=== PATIENT | male | born 1965 | race Caucasian/White ===

== ENCOUNTER 2021-12-05 09:18 | Inpatient (IN) ==
[2021-12-05] MEDS ORDERED: DEXAMETHASONE 10 MG/ML VIAL IV ONE (10:03)
--- NOTE | 2021-12-05 10:06 | Emergency Department Note ---
HPI General Chief complaint: Shortness of Breath/Dyspnea Stated complaint: COVID, PNA Time Seen by Provider: 12/05/21 09:48 Source: patient and EMS Mode of arrival: EMS Limitations: no limitations History of Present Illness HPI Narrative: Narrative: 56 yo M w/ h/o HTN, known COVID19, p/w SOB. He reports constant SOB, worsened w/ exertion, relieved by rest, w/ no accompanying PND/orthopnea. He notes body aches, subjective F/C, and fatigue. He has not had CP, N/V/D. He is unvaccinated against COVID19. He saw his PCP for this issue recently and was Dx'd w/ COVID19. On re-eval today his CXR showed pulmonary edema, and he was hypoxic in the office. He was thus sent here for ongoing care. Related Data Home Medications Medication Instructions Recorded Confirmed sildenafil (pulm.hypertension) 20 3 - 5 tab PO 12/05/21 12/05/21 mg tablet Previous Rx's Medication Instructions Recorded blood pressure test kit-large #1 each 05/09/20 citalopram 10 mg tablet (Celexa) 10 mg PO QDAY #90 tab 08/29/21 metoprolol tartrate 50 See Rx Instructions .ROUTE 08/29/21 mg-hydrochlorothiazide 25 mg tablet .COMPLEX #180 tab benzonatate 200 mg capsule 200 mg PO .COMPLEX #21 cap 11/27/21 Allergies Allergy/AdvReac Type Severity Reaction Status Date / Time sulfamethoxazole Allergy Mild Rash Verified 12/05/21 15:47 [From Bactrim] trimethoprim [From Bactrim] Allergy Mild Rash Verified 12/05/21 15:47 Review of Systems ROS ROS Narrative: Narrative: All systems ED: reviewed and negative except as stated. [facility] Narrative Patient History Narrative: Narrative: Medical/Surgical/Family History All Active Problems (Updated 12/05/21 @ 13:28 by Slim Mitchell MD) Pneumonia due to COVID-19 virus (Acute) COVID-19 virus infection (Acute) Dyspnea on exertion (Acute) Cough (Acute) Fever (Acute) Flank pain (Acute) Viral syndrome (Acute) Pustular acne (Acute) Erectile dysfunction (Acute) Obesity (Acute) Diastasis recti (Acute) Exposure to STD (Acute) Dysuria (Acute) Depression (Acute) Numbness of right hand (Acute) Thrush, oral (Acute) Rosacea (Chronic) Hypertension (Chronic) Hypogonadism male (Chronic) Medical History Abnormal liver function test Allergic drug reaction Sulfa Bronchitis Dermatitis Elevated hemoglobin Erectile dysfunction FHx: cardiovascular disease History of BPH HTN (hypertension) Hyperlipidemia Onychomycosis Physical exam Polycythemia vera Right knee pain Screening for malignant neoplasm of prostate Tachycardia Testosterone deficiency Tobacco dependence Upper respiratory infection Viral syndrome Surgical History History of carpal tunnel release Right side - Dr. Veliz 2019 Status post right knee replacement 2014 - Dr Cheng Family History Mother Osteoporosis Arthritis Thyroid disease Father , in MVA before patient was born No problems noted. Grandfather Cardiovascular disease Hx of heart bypass surgery Both grandfathers and uncles Social History Smoking Status: Never smoker Exam Narrative Narrative: Narrative: General Limitations: no limitations General appearance: Present alert and in no apparent distress Head Head: Present atraumatic and normocephalic Chest Chest: Present normal inspection and symmetric chest wall rise Respiratory Respiratory: Present normal lung sounds bilaterally; Absent accessory muscle use or decreased breath sounds Cardiovascular Cardiovascular: Present regular rate, normal rhythm, +S1, +S2 and other (2+ B/L radial pulses); Absent systolic murmur or diastolic murmur Adbominal Abdominal: Present soft and normal bowel sounds; Absent distention or tenderness Extremities Extremities: Absent pedal edema Neurological Neurological: Present alert and oriented X3 Psychiatric Psychiatric: Present normal affect Skin Skin: Present warm (WNL) and dry Course Vital Signs Vital signs: Vital Signs Temperature 98.4 F 12/05/21 09:19 Pulse Rate 102 H 12/05/21 09:19 Respiratory Rate 20 12/05/21 09:19 Blood Pressure 144/95 12/05/21 09:19 Pulse Oximetry (%) 93 12/05/21 09:19 Temperature 98.0 F 12/05/21 15:43 Pulse Rate 104 H 12/05/21 15:43 Respiratory Rate 21 12/05/21 15:43 Blood Pressure 143/92 12/05/21 15:43 Pulse Oximetry (%) 92 12/05/21 15:43 MDM MDM Narrative Medical decision making narrative: Narrative: 56 yo M w/ h/o HTN, known COVID19, p/w SOB. DDx - COVID19, PE, ACS, DARLENE Pt presented in NAD but w/ hypoxia present which responded well to NC supplementation. He had no sudden worsening in Sx that is usually seen w/ PE in COVID19 and CTA was not indicated. EKG showed no ischemia and his overall presentation was not c/w ACS. COVID complications such as myocarditis and pericarditis were unlikely. Outpatient lab results show a normal BUN but for some reason there is no Cr. Overall however DARLENE seems less likely. His presentation was c/w PNA d/t COVID19. I started him on dexamethasone here in the ED and he was then admitted. Lab Data Lab results reviewed: Yes I reviewed the patient's lab results. Labs: Lab Results 12/05/21 12/05/21 Range/Units 13:14 13:14 Ferritin 1643.0 H (30.0-400.0) ng/mL Procalcitonin 0.20 H (<0.10) ng/mL Discharge Plan Patient/Caregiver Discharge Instructions Pt seen by CIVIL SERVICE CLERK/PA only: No Clinical Impression: Pneumonia due to COVID-19 virus Patient Disposition: Xfer As Inpt ([facility]) Condition: Fair Discharge Date/Time: 12/05/21 15:00
--- NOTE | 2021-12-05 12:39 | EKG ---
[facility] Test Date: 2021-12-05 Pat Name: Yariel Ibarra Department: ED Room: Gender: Male Manager Golf: JOSHUA : 1965 Requested By: Slim Mitchell Order Number: [id number] Reading MD: Mehul Phelan D.O. Measurements Intervals [place] Rate: 103 P: 18 W[place]: 177 QRS: 110 QRSD: 100 T: 26 QT: 355 QTc: 465 Interpretive Statements Sinus tachycardia Left posterior fascicular block Abnormal R-wave progression, late transition Electronically Signed On 12-05-2021 12:39:08 PST by Mehul Phelan D.O. /store/M0/[id number].pdf
--- NOTE | 2021-12-05 13:41 | Internal Med History&Physical ---
HPI History of Present Illness Patient information: Note initiated : 12/05/21 at 1:38 pm Service Date, if different from initiated Date: [] Patient: Yariel Ibarra a 56 y/o M admitted on for COVID, PNA. Chief Complaint: [] History of present illness: Mr. Ibarra is a 56 year old M Who presents the ED with shortness of breath and nonproductive cough. Is been feeling crummy for couple weeks and got tested for Covid last week and positive. Patient is not vaccinated. Patient had fevers last week and chills but that has improved. His cough is worsened. Body aches. He went into [facility] and was found to be hypoxic in the 80s by his PCP and then sent to the ED. Review of Systems: Pertinent positives as above. Denies nausea/vomiting/chest or abdominal pain/diarrhea. Remaining 10 point review of system reviewed negative PFSH PFSH All Active Problems (Updated 12/05/21 @ 13:28 by Slim Mitchell MD) Pneumonia due to COVID-19 virus (Acute) COVID-19 virus infection (Acute) Dyspnea on exertion (Acute) Cough (Acute) Fever (Acute) Flank pain (Acute) Viral syndrome (Acute) Pustular acne (Acute) Erectile dysfunction (Acute) Obesity (Acute) Diastasis recti (Acute) Exposure to STD (Acute) Dysuria (Acute) Depression (Acute) Numbness of right hand (Acute) Thrush, oral (Acute) Rosacea (Chronic) Hypertension (Chronic) Hypogonadism male (Chronic) Medical History Abnormal liver function test Allergic drug reaction Sulfa Bronchitis Dermatitis Elevated hemoglobin Erectile dysfunction FHx: cardiovascular disease History of BPH HTN (hypertension) Hyperlipidemia Onychomycosis Physical exam Polycythemia vera Right knee pain Screening for malignant neoplasm of prostate Tachycardia Testosterone deficiency Tobacco dependence Upper respiratory infection Viral syndrome Surgical History History of carpal tunnel release Right side - Dr. Veliz 2019 Status post right knee replacement 2014 - Dr Cheng Family History Mother Osteoporosis Arthritis Thyroid disease Father , in MVA before patient was born No problems noted. Grandfather Cardiovascular disease Hx of heart bypass surgery Both grandfathers and uncles Social History marital status: MEDS/ALLERGIES Home Medications and Allergies Home Medications Medication Instructions Recorded Confirmed Type testosterone cypionate 200 mg/mL 400 mg IM QMONTH ml 06/17/19 11/27/21 History intramuscular oil (Depo-Testosterone) blood pressure test kit-large #1 each 05/09/20 11/27/21 Rx metronidazole 0.75 % topical cream 1 applic TOPICAL BID #45 g 07/11/20 11/27/21 Rx naproxen 500 mg tablet 500 mg PO .COMPLEX #60 tab 09/08/20 11/27/21 Rx citalopram 10 mg tablet (Celexa) 10 mg PO QDAY #90 tab 08/29/21 11/27/21 Rx metoprolol tartrate 50 See Rx Instructions .ROUTE 08/29/21 11/27/21 Rx mg-hydrochlorothiazide 25 mg tablet .COMPLEX #180 tab sildenafil (pulm.hypertension) 20 See Rx Instructions .ROUTE 08/29/21 11/27/21 Rx mg tablet .COMPLEX #60 tab doxycycline hyclate 100 mg tablet 100 mg PO QDAY #30 tab 10/05/21 11/27/21 Rx benzonatate 200 mg capsule 200 mg PO .COMPLEX #21 cap 11/27/21 11/27/21 Rx Allergies Allergy/AdvReac Type Severity Reaction Status Date / Time sulfamethoxazole AdvReac Unknown Rash Verified 11/27/21 12:51 [From Bactrim] trimethoprim [From Bactrim] AdvReac Unknown Rash Verified 11/27/21 12:51 EXAM Constitutional Vitals: Temp Pulse Resp BP Pulse Ox 98.4 F 93 H 20 142/96 90 12/05/21 09:19 12/05/21 13:04 12/05/21 09:19 12/05/21 13:04 12/05/21 13:04 Head Additional comments: General: Alert, Awake, No acute Distress, obese Eyes/N/T: EOMI, PERRL, Head/Neck: neck supple, normocephalic atraumatic CV: RRR, No murmurs, normal s1/s2 Pulm: mild ralesb b/ll, no wheezing Abd: soft, nontender, +BS x4 Ext: no clubbing/cyanosis/edema Neuro: Alert, no focal deficits, moves all extremities, CN 2-12 grossly intact, symmetrical strength b/l upper/lower, sensations intact b/l upper/lower Skin: warm/dry DATA Data Completed and Pending Labs: Labs from last 24 hours 12/05/21 12/05/21 12/05/21 13:14 13:14 13:14 D-Dimer Pending Ferritin Pending C-Reactive Protein Pending Procalcitonin Pending A/P Narrative A/P Narrative: A: *Covid pneumonia w/ : *Acute hypoxic respiratory failure: -on 3-4L NC *HTN: *Depression: *Polycythemia vera: P: -Dex/Rem/Barici -O2 wean as able -Proning/mobilization/OOB to chair -Monitor volume status, prn Lasix -Check inflammatory labs -Continue home medications -ABG --Home medication reconciliation -ppx: Lovenox Time Spent With Patient Time: Total time spent is greater than 50% in coordination of care (as documented) at patient's floor/unit and/or counseling patient:
[2021-12-05] MEDS ORDERED: SENNOSIDES 1 TABLET PO PRN (15:43)
[2021-12-05] MEDS ORDERED: POTASSIUM CHLORIDE 20 MEQ TABLET PO PRN ×2 (15:43)
[2021-12-05] MEDS ORDERED: IPRATROPIUM/ALBUTEROL 3 ML AMPUL.NEB NEB PRN (15:43)
[2021-12-05] MEDS ORDERED: MAGNESIUM SULFATE 2 GM/50 ML BAG IV PRN (15:43)
[2021-12-05] MEDS ORDERED: POLYETHYLENE GLYCOL 3350 17 GM PACKET PO PRN (15:43)
[2021-12-05] MEDS ORDERED: POTASSIUM CHLORIDE 40 MEQ in DEXTROSE 5% IN WATER 500 ML IV PRN (15:43)
[2021-12-05] MEDS ORDERED: ONDANSETRON 4 MG/2 ML VIAL IV PRN (15:43)
[2021-12-05] MEDS ORDERED: REMDESIVIR 200 MG in 0.9 % SODIUM CHLORIDE 250 ML IV ONE (16:00)
[2021-12-05] MEDS: 0.9 % SODIUM CHLORIDE 10 ML SYRINGE IV SCH ×2 (16:11→20:07)
[2021-12-05] MEDS: BENZONATATE 100 MG CAPSULE PO PRN (20:06)
[2021-12-05] MEDS: ENOXAPARIN 40 MG/0.4 ML SYRINGE SQ SCH (20:07)
[2021-12-05] MEDS: ACETAMINOPHEN 325 MG TABLET PO PRN (20:07)
[2021-12-05] MEDS: FAMOTIDINE 20 MG TABLET PO SCH (20:07)
[2021-12-05] MEDS: HYDROCHLOROTHIAZIDE 25 MG TABLET PO SCH (22:21)
[2021-12-05] MEDS: METOPROLOL TARTRATE 50 MG TABLET PO SCH (22:21)
[2021-12-05] MEDS: BARICITINIB 2 MG TABLET PO SCH (22:21)
[2021-12-06] MEDS: ACETAMINOPHEN 325 MG TABLET PO PRN (03:19)
[2021-12-06] MEDS: BENZONATATE 100 MG CAPSULE PO PRN (03:19)
[2021-12-06] MEDS: 0.9 % SODIUM CHLORIDE 10 ML SYRINGE IV SCH ×3 (06:02→20:06)
[2021-12-06 07:09] LABS: Basophils # (Auto) 0.02 K/mcL (0.00-0.30); Basophils % (Auto) 0.3 % (0.0-2.0); Eosinophils # (Auto) 0.01 K/mcL (0.00-0.70); Eosinophils % (Auto) 0.2 % (0.0-7.0); Hematocrit 47.5 % (40.1-51.0); Hemoglobin 16.4 g/dL (13.7-17.5); Lymphocytes # (Auto) 1.02 K/mcL (1.50-4.80); Lymphocytes % (Auto) 15.7 % (15.5-49.0); Mean Cell Volume 94.1 fL (80.0-100.0); Mean Corpuscular HGB Conc 34.5 g/dL (31.0-36.0); Mean Platelet Volume 10.5 fL (7.4-10.4); Monocytes # (Auto) 0.57 K/mcL (0.10-0.90); Monocytes % (Auto) 8.8 % (1.0-12.0); Platelet Count 413 K/mcL (140-440); RBC 5.05 M/mcL (4.63-6.08); Red Cell Distribution Width 12.9 % (11.5-14.5); WBC 6.5 K/mcL (4.5-11.0)
--- NOTE | 2021-12-06 07:19 | Internal Med Progress Note ---
SUBJECTIVE Subjective Patient information: Note initiated : 12/06/21 at 7:16 am Service Date, if different from initiated Date: [] Patient: Yariel Ibarra a 56 y/o M admitted on 12/05/21 for COVID, PNA. Chief Complaint: [] Interval history: History of present illness: Mr. Ibarra is a 56 year old M Who presents the ED with shortness of breath and nonproductive cough. Is been feeling crummy for couple weeks and got tested for Covid last week and positive. Patient is not vaccinated. Patient had fevers last week and chills but that has improved. His cough is worsened. Body aches. He went into [facility] and was found to be hypoxic in the 80s by his PCP and then sent to the ED. 2/3 Patient feeling much better today. Has dry cough. On 4 L of oxygen. Review of Systems: denies headache/fever/chills/nausea/vomiting/chest or abdominal pain/diarrhea. Otherwise see above. Constitutional Vitals: Vital Signs Temp Pulse Resp BP Pulse Ox 99.2 F H 71 18 114/76 95 12/06/21 06:58 12/06/21 06:58 12/06/21 06:58 12/06/21 06:58 12/06/21 06:58 Period Temp Pulse Resp BP Sys/Dye Pulse Ox Last 24 Hr 96.3 F-99.2 F 64-115 18-24 114-157/76-109 87-97 Intake and Output 12/05/21 12/06/21 12/06/21 21:59 05:59 13:59 Intake Total 1050 250 Balance 1050 250 Weight 111.782 kg Intake & Output: Intake & Output 12/05/21 12/06/21 12/06/21 21:59 05:59 13:59 Intake Total 1050 250 Balance 1050 250 Weight 111.782 kg Intake: IV 250 Veklury 200 mg In Sodium 250 Chloride 0.9% 250 ml @ 500 mls/ hr IV ONCE ONE Rx#:[id number] Oral 800 250 Other: Urine Appearance Clear Urine Color Pale Urine Odor Normal # Voids 1 Exam: General: Alert, Awake, No acute Distress, obese Eyes/N/T: EOMI, Head/Neck: neck supple, CV: RRR, No murmurs, Pulm: mild rales b/l, no wheezing Abd: soft, nontender, +BS x4 Ext: no clubbing/cyanosis/edema Neuro: Alert, no focal deficits, moves all extremities, Skin: warm/dry OBJ DATA Labs CBC & Chem 7: 12/06/21 06:14 12/06/21 06:14 Labs: Abnormal Lab Results 12/06/21 12/05/21 12/05/21 06:14 13:14 13:14 MPV 10.5 H Lymph # (Auto) 1.02 L D-Dimer Ferritin 1643.0 H C-Reactive Protein 25.30 H Procalcitonin 0.20 H 12/05/21 13:14 MPV Lymph # (Auto) D-Dimer 1.68 H Ferritin C-Reactive Protein Procalcitonin Meds: Medications Acetaminophen (Acetaminophen 325 Mg Tablet) 650 mg PO Q6HP PRN; Protocol PRN Reason: Per Pain Protocol/Fever > 101 Last Admin: 12/06/21 03:19 Dose: 650 mg Documented by: Albuterol/Ipratropium (Ipratropium/Albuterol 3 Ml Ampul.Neb) 3 ml NEB Q4HP PRN PRN Reason: Shortness Of Breath Benzonatate (Benzonatate 100 Mg Capsule) 200 mg PO TIDP PRN PRN Reason: Cough Last Admin: 12/06/21 03:19 Dose: 200 mg Documented by: Citalopram Hydrobromide (Citalopram 20 Mg Tablet) 10 mg PO DAILY [facility] Dexamethasone (Dexamethasone 4 Mg Tablet) 6 mg PO DAILY [facility] Enoxaparin Sodium (Enoxaparin 40 Mg/0.4 Ml Syringe) 40 mg SQ BID [facility] Last Admin: 12/05/21 20:07 Dose: 40 mg Documented by: Famotidine (Famotidine 20 Mg Tablet) 20 mg PO BID [facility] Last Admin: 12/05/21 20:07 Dose: 20 mg Documented by: Hydrochlorothiazide (Hydrochlorothiazide 25 Mg Tablet) 25 mg PO BID [facility] Last Admin: 12/05/21 22:21 Dose: 25 mg Documented by: Potassium Chloride 40 meq/ (Dextrose) 520 mls @ 130 mls/hr IV UD PRN PRN Reason: Potassium < 3 Magnesium Sulfate (Magnesium Sulfate) 2 gm in 50 mls @ 50 mls/hr IV UD PRN PRN Reason: Magnesium </= 1.6 REMDESIVIR 100 mg/ Sodium (Chloride) 250 mls @ 500 mls/hr IV Q24H [facility] Stop: 12/09/21 14:29 Metoprolol Tartrate (Metoprolol Tartrate 50 Mg Tablet) 50 mg PO BID [facility] Last Admin: 12/05/21 22:21 Dose: 50 mg Documented by: Ondansetron HCl (Ondansetron 4 Mg/2 Ml Vial) 4 mg IV Q4HP PRN PRN Reason: Nausea And Vomiting Polyethylene Glycol (Polyethylene Glycol 3350 17 Gm Packet) 17 gm PO DAILYP PRN PRN Reason: Constipation Potassium Chloride (Potassium Chloride 20 Meq Tablet) 40 meq PO UD PRN PRN Reason: Potssium is 3-3.5 Potassium Chloride (Potassium Chloride 20 Meq Tablet) 40 meq PO UD PRN PRN Reason: Potassium < 3 Senna (Sennosides 1 Tablet) 2 tab PO DAILYP PRN PRN Reason: Constipation Sodium Chloride (0.9 % Sodium Chloride 10 Ml Syringe) 10 ml IV Q8 [facility] Last Admin: 12/06/21 06:02 Dose: 10 ml Documented by: A/P Narrative A/P Narrative: A: *Covid pneumonia w/ARDS: *Acute hypoxic respiratory failure: -on 4L HFNC *HTN: *Depression: *Polycythemia vera: P: -Dex/Rem/Barici -O2 wean as able -Proning/mobilization/OOB to chair -Monitor volume status, prn Lasix -Continue home medications -ppx: Lovenox Time Spent With Patient Time: Total time spent is greater than 50% in coordination of care (as documented) at patient's floor/unit and/or counseling patient: QUALITY VTE Deep Vein Thrombosis/Pulmonary Embolism Present on Admission: No
[2021-12-06 07:30] LABS: ALT/SGPT 63 U/L (<40); AST/SGOT 28 U/L (<40); Albumin 2.8 gm/dL (3.2-5.2); Albumin/Globulin Ratio 0.8 (1.0-2.3); Alkaline Phosphatase 76 U/L (39-117); Bilirubin,Direct 0.9 mg/dL (<0.3); Bilirubin,Total 1.5 mg/dL (0.1-1.0); Blood Urea Nitrogen 14 mg/dL (6-20); Calcium 8.3 mg/dL (8.6-10.4); Carbon Dioxide 25 mmol/L (22-30); Chloride 96 mmol/L (96-108); Globulin 3.7 gm/dL (2.2-3.7); Glomerular Filtration Rate 100; Glucose 125 mg/dL (70-105); Lactate Dehydrogenase 366 U/L (135-225); Phosphorous 3.7 mg/dL (2.5-4.5); Triglycerides 66 mg/dL (<150); Uric Acid 5.2 mg/dL (2.5-8.0)
[2021-12-06] MEDS: ENOXAPARIN 40 MG/0.4 ML SYRINGE SQ SCH ×2 (09:36→20:06)
[2021-12-06] MEDS: CITALOPRAM 20 MG TABLET PO SCH (09:36)
[2021-12-06] MEDS: METOPROLOL TARTRATE 50 MG TABLET PO SCH ×2 (09:40→20:06)
[2021-12-06] MEDS: HYDROCHLOROTHIAZIDE 25 MG TABLET PO SCH ×2 (09:41→20:06)
[2021-12-06] MEDS: BARICITINIB 2 MG TABLET PO SCH (09:48)
[2021-12-06] MEDS: DEXAMETHASONE 4 MG TABLET PO SCH (09:48)
[2021-12-06] MEDS: FAMOTIDINE 20 MG TABLET PO SCH ×2 (09:49→20:06)
[2021-12-06] MEDS ORDERED: FUROSEMIDE 40 MG/4 ML VIAL IV ONE (10:33)
[2021-12-06] MEDS: REMDESIVIR 100 MG in 0.9 % SODIUM CHLORIDE 250 ML IV SCH (14:05)
[2021-12-07] MEDS: 0.9 % SODIUM CHLORIDE 10 ML SYRINGE IV SCH ×4 (04:45→20:16)
--- NOTE | 2021-12-07 07:21 | Internal Med Progress Note ---
SUBJECTIVE Subjective Patient information: Note initiated : 12/07/21 at 7:20 am Service Date, if different from initiated Date: [] Patient: Yariel Ibarra a 56 y/o M admitted on 12/05/21 for COVID, PNA. Chief Complaint: [] Interval history: History of present illness: Mr. Ibarra is a 56 year old M Who presents the ED with shortness of breath and nonproductive cough. Is been feeling crummy for couple weeks and got tested for Covid last week and positive. Patient is not vaccinated. Patient had fevers last week and chills but that has improved. His cough is worsened. Body aches. He went into [facility] and was found to be hypoxic in the 80s by his PCP and then sent to the ED. 2/3 Patient feeling much better today. Has dry cough. On 4 L of oxygen. / Patient continues to have gradual improvement. Dry cough. On 3 to 4 L nasal cannula Review of Systems: denies headache/fever/chills/nausea/vomiting/chest or abdominal pain/diarrhea. Otherwise see above. Constitutional Vitals: Vital Signs Temp Pulse Resp BP Pulse Ox 97 F 66 20 133/95 93 12/07/21 06:55 12/07/21 05:51 12/07/21 06:55 12/07/21 06:55 12/07/21 06:55 Period Temp Pulse Resp BP Sys/Dye Pulse Ox Last 24 Hr 96.1 F-97.4 F 63-77 18-20 108-133/66-95 92-98 Intake and Output 12/06/21 12/07/21 12/07/21 21:59 05:59 13:59 Intake Total 1560 960 Output Total 2925 1050 Balance -1365 -90 Weight 111.266 kg Intake & Output: Intake & Output 12/06/21 12/07/21 12/07/21 21:59 05:59 13:59 Intake Total 1560 960 Output Total 2925 1050 Balance -1365 -90 Weight 111.266 kg Intake: IV 250 Veklury 100 mg In Sodium 250 Chloride 0.9% 250 ml @ 500 mls/ hr IV Q24H [facility] Rx#:[id number] Oral 1310 960 Output: Void Amount 2925 1050 Other: Meal Dinner Percent of Meal Consumed 100% Feeding Ability Independent Urine Appearance Clear Clear Urine Color Bright Yellow Bright Yellow Urine Odor Normal Stool Size Moderate Stool Color Brown Stool Consistency Formed Exam: General: Alert, Awake, No acute Distress, obese Eyes/N/T: EOMI, Head/Neck: neck supple, CV: RRR, No murmurs, Pulm: Clear anteriorly b/l, no wheezing Abd: soft, nontender, +BS x4 Ext: no clubbing/cyanosis/edema Neuro: Alert, no focal deficits, moves all extremities, Skin: warm/dry OBJ DATA Labs CBC & Chem 7: 12/06/21 06:14 12/07/21 06:02 Labs: Abnormal Lab Results 12/06/21 12/06/21 12/05/21 06:14 06:14 13:14 MPV 10.5 H Lymph # (Auto) 1.02 L D-Dimer Glucose 125 H Calcium 8.3 L Magnesium 2.8 H Ferritin Total Bilirubin 1.5 H Direct Bilirubin 0.9 H GGT 129 H ALT 63 H Lactate Dehydrogenase 366 H C-Reactive Protein Albumin 2.8 L Albumin/Globulin Ratio 0.8 L Procalcitonin 0.20 H 12/05/21 12/05/21 13:14 13:14 MPV Lymph # (Auto) D-Dimer 1.68 H Glucose Calcium Magnesium Ferritin 1643.0 H Total Bilirubin Direct Bilirubin GGT ALT Lactate Dehydrogenase C-Reactive Protein 25.30 H Albumin Albumin/Globulin Ratio Procalcitonin Meds: Medications Acetaminophen (Acetaminophen 325 Mg Tablet) 650 mg PO Q6HP PRN; Protocol PRN Reason: Per Pain Protocol/Fever > 101 Last Admin: 12/06/21 03:19 Dose: 650 mg Documented by: Albuterol/Ipratropium (Ipratropium/Albuterol 3 Ml Ampul.Neb) 3 ml NEB Q4HP PRN PRN Reason: Shortness Of Breath Benzonatate (Benzonatate 100 Mg Capsule) 200 mg PO TIDP PRN PRN Reason: Cough Last Admin: 12/06/21 03:19 Dose: 200 mg Documented by: Citalopram Hydrobromide (Citalopram 20 Mg Tablet) 10 mg PO DAILY [facility] Last Admin: 12/06/21 09:36 Dose: 10 mg Documented by: Dexamethasone (Dexamethasone 4 Mg Tablet) 6 mg PO DAILY [facility] Last Admin: 12/06/21 09:48 Dose: 6 mg Documented by: Enoxaparin Sodium (Enoxaparin 40 Mg/0.4 Ml Syringe) 40 mg SQ BID [facility] Last Admin: 12/06/21 20:06 Dose: 40 mg Documented by: Famotidine (Famotidine 20 Mg Tablet) 20 mg PO BID [facility] Last Admin: 12/06/21 20:06 Dose: 20 mg Documented by: Hydrochlorothiazide (Hydrochlorothiazide 25 Mg Tablet) 25 mg PO BID [facility] Last Admin: 12/06/21 20:06 Dose: 25 mg Documented by: Potassium Chloride 40 meq/ (Dextrose) 520 mls @ 130 mls/hr IV UD PRN PRN Reason: Potassium < 3 Magnesium Sulfate (Magnesium Sulfate) 2 gm in 50 mls @ 50 mls/hr IV UD PRN PRN Reason: Magnesium </= 1.6 REMDESIVIR 100 mg/ Sodium (Chloride) 250 mls @ 500 mls/hr IV Q24H [facility] Stop: 12/09/21 14:29 Last Infusion: 12/06/21 14:35 Dose: Infused Documented by: Metoprolol Tartrate (Metoprolol Tartrate 50 Mg Tablet) 50 mg PO BID [facility] Last Admin: 12/06/21 20:06 Dose: 50 mg Documented by: Ondansetron HCl (Ondansetron 4 Mg/2 Ml Vial) 4 mg IV Q4HP PRN PRN Reason: Nausea And Vomiting Polyethylene Glycol (Polyethylene Glycol 3350 17 Gm Packet) 17 gm PO DAILYP PRN PRN Reason: Constipation Potassium Chloride (Potassium Chloride 20 Meq Tablet) 40 meq PO UD PRN PRN Reason: Potssium is 3-3.5 Last Admin: 12/06/21 09:41 Dose: 40 meq Documented by: Potassium Chloride (Potassium Chloride 20 Meq Tablet) 40 meq PO UD PRN PRN Reason: Potassium < 3 Senna (Sennosides 1 Tablet) 2 tab PO DAILYP PRN PRN Reason: Constipation Sodium Chloride (0.9 % Sodium Chloride 10 Ml Syringe) 10 ml IV Q8 [facility] Last Admin: 12/07/21 04:45 Dose: 10 ml Documented by: A/P Narrative A/P Narrative: A: *Covid pneumonia w/ARDS: *Acute hypoxic respiratory failure: -on 3L HFNC *HTN: *Depression: *Polycythemia vera: P: -Dex/Rem/Barici -O2 wean as able -Proning/mobilization/OOB to chair -Monitor volume status, prn Lasix -Continue home medications -ppx: Lovenox Time Spent With Patient Time: Total time spent is greater than 50% in coordination of care (as documented) at patient's floor/unit and/or counseling patient: QUALITY VTE Deep Vein Thrombosis/Pulmonary Embolism Present on Admission: No
[2021-12-07 08:13] LABS: ALT/SGPT 76 U/L (<40); AST/SGOT 38 U/L (<40); Albumin/Globulin Ratio 0.8 (1.0-2.3); Alkaline Phosphatase 73 U/L (39-117); Bilirubin,Direct 0.5 mg/dL (<0.3); Bilirubin,Total 1.1 mg/dL (0.1-1.0); Blood Urea Nitrogen 17 mg/dL (6-20); Calcium 8.4 mg/dL (8.6-10.4); Carbon Dioxide 25 mmol/L (22-30); Chloride 96 mmol/L (96-108); Globulin 3.6 gm/dL (2.2-3.7); Glomerular Filtration Rate 95; Glucose 111 mg/dL (70-105); Lactate Dehydrogenase 365 U/L (135-225); Phosphorous 3.1 mg/dL (2.5-4.5); Triglycerides 85 mg/dL (<150)
[2021-12-07] MEDS: DEXAMETHASONE 4 MG TABLET PO SCH (08:45)
[2021-12-07] MEDS: METOPROLOL TARTRATE 50 MG TABLET PO SCH ×2 (08:46→19:53)
[2021-12-07] MEDS: ENOXAPARIN 40 MG/0.4 ML SYRINGE SQ SCH ×2 (08:46→19:54)
[2021-12-07] MEDS: CITALOPRAM 20 MG TABLET PO SCH (08:46)
[2021-12-07] MEDS: BARICITINIB 2 MG TABLET PO SCH (08:46)
[2021-12-07] MEDS: FAMOTIDINE 20 MG TABLET PO SCH ×2 (08:46→19:53)
[2021-12-07] MEDS: HYDROCHLOROTHIAZIDE 25 MG TABLET PO SCH ×2 (08:46→19:53)
--- NOTE | 2021-12-07 10:52 | Discharge Summary ---
Discharge Provider Provider Patient information: Note initiated : 12/07/21 at 10:50 am Service Date, if different from initiated Date: [] Patient: Yariel Ibarra 56 y/o M admitted on 12/05/21 for COVID, PNA. Chief Complaint: [] Date of admission: 12/05/21 15:00 Discharge date: 12/08/21 Primary care physician: MUKESH [place] Consults: 12/05/21 Consult to Physician [CONS] Stat Comment: Consulting Provider: Man Doan Reason For Exam: Physician to Consult Discharge Meds Discharge Medications Home Medications citalopram 10 mg tablet (Celexa) 10 mg PO QDAY #90 tab 08/29/21 [Rx Confirmed 12/05/21 Last Taken 11/03/20 00:00] metoprolol tartrate 50 mg-hydrochlorothiazide 25 mg tablet See Rx Instructions .ROUTE .COMPLEX #180 tab 08/29/21 [Rx Confirmed 12/05/21 Last Taken 12/05/21 07:00] benzonatate 200 mg capsule 200 mg PO .COMPLEX #21 cap 11/27/21 [Rx Confirmed 12/05/21 Last Taken 12/05/21] sildenafil (pulm.hypertension) 20 mg tablet 3 - 5 tab PO PRN PRN 12/05/21 [History Confirmed 12/05/21 Last Taken Unknown] COURSE Hospital Course Hospital course: Interval history: History of present illness: Mr. Ibarra is a 56 year old M Who presents the ED with shortness of breath and nonproductive cough. Is been feeling crummy for couple weeks and got tested for Covid last week and positive. Patient is not vaccinated. Patient had fevers last week and chills but that has improved. His cough is worsened. Body aches. He went into [facility] and was found to be hypoxic in the 80s by his PCP and then sent to the ED. 2/3 Patient feeling much better today. Has dry cough. On 4 L of oxygen. 2/4 Patient continues to have gradual improvement. Dry cough. On 3 to 4 L nasal cannula 2/5 Gradually improving. No overnight event or new complaints. Stable for discharge. A: *Covid pneumonia w/ARDS: *Acute hypoxic respiratory failure: *HTN: *Depression: *Polycythemia vera: Discharge diagnosis: Covid pneumonia with large acute hypoxic respite failure Secondary discharge diagnosis: Pression obesity polycythemia vera hypertension Time Spent with Patient Time attestation: Total time spent providing and/or coordinating discharge services: Time spent: Greater than 30 minutes EXAM Constitutional Vitals: Temp Pulse Resp BP Pulse Ox 97 F 66 20 133/95 93 12/07/21 06:55 12/07/21 05:51 12/07/21 08:00 12/07/21 06:55 12/07/21 08:00 Discharge Data Data Completed and Pending Labs on day of discharge: Labs from last 24 hours 12/07/21 12/07/21 12/07/21 06:02 06:02 06:02 D-Dimer Pending Sodium 136 Potassium 3.6 Chloride 96 Carbon Dioxide 25 Anion Gap 15.0 BUN 17 Creatinine 0.9 GFR Calculation 95 Glucose 111 H Uric Acid 6.0 Calcium 8.4 L Phosphorus 3.1 Magnesium 2.6 H Ferritin 2259.0 H Total Bilirubin 1.1 H Direct Bilirubin 0.5 H GGT 123 H AST 38 ALT 76 H Alkaline Phosphatase 73 Lactate Dehydrogenase 365 H C-Reactive Protein 9.50 H Total Protein 6.6 Albumin 3.0 L Globulin 3.6 Albumin/Globulin Ratio 0.8 L Triglycerides 85 Preliminary micro results at discharge 12/06/21 14:18 Gram Stain - Preliminary Sputum source - Expectorated Sputum Culture - Preliminary Discharge Plan Patient/Caregiver Discharge Instructions Activity: increase activity as tolerated Diet: Regular Diet Activity Restrictions/Additional Instructions: Patient will need home oxygen for Covid pneumonia Prescriptions: Continued citalopram [Celexa] 10 mg tablet 10 mg PO QDAY Qty: 90 1RF Label Comments: takes seasonally during the winter months, last taken last year metoprolol ta-hydrochlorothiaz 50-25 mg tablet See Rx Instructions .ROUTE .COMPLEX Qty: 180 1RF Dose Instruction: TAKE ONE TABLET BY MOUTH TWICE DAILY Label Comments: takes for bp/heart Rx Instructions: TAKE ONE TABLET BY MOUTH TWICE DAILY benzonatate 200 mg capsule 200 mg PO .COMPLEX Qty: 21 1RF Rx Instructions: 200 mg PO tid prn for cough; sildenafil (pulm.hypertension) 20 mg tablet 3 - 5 tab PO PRN PRN (Reason: Hypertension) 0RF Label Comments: Pt. has not taken for several weeks. Follow Up Plan Follow up with: Ruth,José B, [facility] [Primary Care Provider] - Patient Disposition: Home, Self-Care Prognosis: Fair Overall status at discharge: patient is progressing back to baseline Discharge Orders: Discharge Order (Routine); Ordered 12/08/21 Ordered By: Man RAY VTE Deep Vein Thrombosis/Pulmonary Embolism Present on Admission: No
[2021-12-07] MEDS: REMDESIVIR 100 MG in 0.9 % SODIUM CHLORIDE 250 ML IV SCH (13:57)
[2021-12-07] MEDS: BENZONATATE 100 MG CAPSULE PO PRN (19:53)
[2021-12-08] MEDS: BENZONATATE 100 MG CAPSULE PO PRN (03:44)
[2021-12-08] MEDS: 0.9 % SODIUM CHLORIDE 10 ML SYRINGE IV SCH ×2 (03:44→04:24)
[2021-12-08] MEDS: DEXAMETHASONE 4 MG TABLET PO SCH (08:22)
[2021-12-08] MEDS: BARICITINIB 2 MG TABLET PO SCH (08:23)
[2021-12-08] MEDS: FAMOTIDINE 20 MG TABLET PO SCH (08:23)
[2021-12-08] MEDS: ENOXAPARIN 40 MG/0.4 ML SYRINGE SQ SCH (08:23)
[2021-12-08] MEDS: CITALOPRAM 20 MG TABLET PO SCH (08:23)
[2021-12-08] MEDS: METOPROLOL TARTRATE 50 MG TABLET PO SCH (08:23)
[2021-12-08] MEDS: HYDROCHLOROTHIAZIDE 25 MG TABLET PO SCH (08:23)
[2021-12-08 10:04] LABS: ALT/SGPT 112 U/L (<40); AST/SGOT 60 U/L (<40); Albumin 2.8 gm/dL (3.2-5.2); Albumin/Globulin Ratio 0.8 (1.0-2.3); Alkaline Phosphatase 64 U/L (39-117); Bilirubin,Direct 0.6 mg/dL (<0.3); Bilirubin,Total 1.2 mg/dL (0.1-1.0); Blood Urea Nitrogen 16 mg/dL (6-20); Calcium 8.2 mg/dL (8.6-10.4); Carbon Dioxide 24 mmol/L (22-30); Chloride 95 mmol/L (96-108); Globulin 3.5 gm/dL (2.2-3.7); Glomerular Filtration Rate 105; Glucose 93 mg/dL (70-105); Lactate Dehydrogenase 378 U/L (135-225); Phosphorous 3.1 mg/dL (2.5-4.5); Triglycerides 72 mg/dL (<150); Uric Acid 5.3 mg/dL (2.5-8.0)
== END 2021-12-08 13:20 | disposition home or self-care (01) | DRG 177 ==
LOC: ED 09:18 → ICU 15:00
PROVIDERS: ADMIT Internal Medicine; ATTEND Internal Medicine